=== PATIENT | female | born 1995 | race Caucasian/White ===

== ENCOUNTER 2020-08-29 22:27 | Emergency (ER) | payer BC, OTHER ==
[~2020-08-29] VITALS: Ht 165.1 cm; Wt 54.0 kg
--- NOTE | 2020-08-29 22:40 | NUR ---
INITIAL PT CONTACT. PT PRESENTS TO ED C/O CHEST DISCOMFORT, FATIGUE AND DECREASED APPETITE STARTING TODAY. PT HAS NO SIGNIFICANT HX. PT STATES SHE RECEIVED HER SECOND COVID VACCINE YESTERDAY, "IT ALL COULD JUST BE FROM THAT". PT SITTING UPRIGHT ON GURNEY, NAD, VSS. PT DENIES ANY NEEDS AT THIS TIME. CALL LIGHT AND PERSONAL BELONGINGS WITHIN REACH.
--- NOTE | 2020-08-29 23:45 | NUR ---
ERP AT BEDSIDE
[2020-08-29 23:47] VITALS: BP 116/71
--- NOTE | 2020-08-30 00:09 | NUR ---
Patient given discharge instructions and they have confirmed that they understand the instructions. Patient ambulatory with steady gait.
== END 2020-08-30 00:11 | disposition home or self-care (01) ==
LOC: ED 23:41
DX: R07.89 Other chest pain (principal); R50.9 Fever, unspecified
CPT/HCPCS: 71046; 93005; 99283